=== PATIENT | female | born 1970 | race Caucasian/White ===

== ENCOUNTER 2017-06-06 23:00 | Inpatient (IN) | payer OTHER ==
[~2017-06-06] VITALS: Ht 165.1 cm; Wt 77.0 kg
[~2017-06-06 23:00] MED LIST: AMITRIPTYLINE H25 MG PO; CATAPRES0.1 MG PO; CEFDINIR300 MG PO; CLINDAMYCIN HC300 MG PO; Cleocin PO; ESCITALOPRAM OXA5 MG PO; FENOFIBRATE54 M1 PO; FLEXERIL 5 MG; FLEXERIL10 MG PO; HYDROCODON-ACE1 EAC7; IBUPROFEN800 MG PO; LEXAPRO10 MG PO; LIPITOR20 MG PO; LISINOPRIL10 MG PO; LORCET PLUS 7.1 EACH PO; MOBIC15 MG PO; NAPROXEN500 MG PO; NEURONTIN300 MG PO; NEURONTIN400 MG PO; Naprosyn PO; PRILOSEC20 MG PO; RANITIDINE HCL150 MG PO; RYBIX ODT50 MG PO; ULTRAM50 MG PO; ZESTRIL20 MG PO; ZOFRAN4 MG PO
[2017-06-06 23:49] LABS: HEMATOCRIT 34.3 % (36.0-46.0); MCH 31.4 PG (29.0-34.0); MCHC 32.4 G/DL (30.0-36.0); MCV 96.9 FL (83-99); MEAN PLAT.VOLUME 9.3 uM^3 (9.5-12.4); PLATELET COUNT 419 K/uL (156-360); RBC DIS.WIDTH-CV 12.5 % (11.8-14.6); RBC DIS.WIDTH-SD 44.9 % (39-53); RED BLOOD COUNT 3.54 M/uL (3.80-5.20); WHITE BLOOD COUNT 13.5 K/uL (4.1-10.2)
[2017-06-07] VITALS (8 sets, daily range): BP systolic 121–152; BP diastolic 62–87
[2017-06-07 00:02] LABS: CHLORIDE 107 mEq/L (99-109); POTASSIUM 3.8 mEq/L (3.7-5.4); SODIUM 141 mEq/L (136-147)
[2017-06-07 00:04] LABS: GLUCOSE 153 mg/dL (70-99)
[2017-06-07 00:05] LABS: ANION GAP 9 MEQ/L (2-14)
[2017-06-07 00:06] LABS: TOTAL BILIRUBIN 0.2 mg/dL (0.0-1.0)
[2017-06-07 00:07] LABS: ALKALINE PHOSPHATASE 87 IU/L (3-129)
[2017-06-07 00:08] LABS: GFR ESTIMATE (CALCULATED) 52 mL/min/
[2017-06-07 00:09] LABS: UREA NITROGEN (BUN) 20 mg/dL (9-23)
[2017-06-07 00:11] LABS: LIPASE 29 U/L (1.0-51.0)
[2017-06-07 00:19] LABS: TROP-I INTERPRETATION NEGATIVE; TROPONIN-I < 0.01 ng/mL (0.0-0.30)
[2017-06-07 00:56] LABS: ADD MIUA? YES; BILIRUBIN NEGATIVE; BLOOD NEGATIVE; COLOR AMBER ((YELLOW)); GLUCOSE (STRIP) 50; KETONES NEGATIVE; LEUKOCYTES NEGATIVE; NITRITE NEGATIVE; PROTEIN (STRIP) 100; SPECIFIC GRAVITY 1.018 (1.000-1.030)
[2017-06-07 01:30] LABS: EPITHELIAL CELLS 4+ /HPF; UCUL ADDED? YES
[2017-06-07 01:39] LABS: INTER. NORMALIZED RATIO 1.3; PROTHROMBIN TIME 14.5 SEC (10.2-12.9)
[2017-06-07 01:42] LABS: PTT 40.2 SEC (25-37)
[2017-06-08 03:42] VITALS: BP 132/71
[2017-06-08 07:25] VITALS: BP 134/80
[2017-06-08 15:56] VITALS: BP 151/76
[2017-06-08 21:17] VITALS: BP 141/78
[2017-06-09] VITALS (7 sets, daily range): BP systolic 132–166; BP diastolic 70–93
[2017-06-10 04:43] VITALS: BP 143/91
[2017-06-10 07:08] LABS: MCH 31.1 PG (29.0-34.0); MCHC 32.5 G/DL (30.0-36.0); MCV 95.8 FL (83-99); MEAN PLAT.VOLUME 9.8 uM^3 (9.5-12.4); PLATELET COUNT 371 K/uL (156-360); RBC DIS.WIDTH-CV 12.7 % (11.8-14.6); RBC DIS.WIDTH-SD 45.1 % (39-53); RED BLOOD COUNT 3.34 M/uL (3.80-5.20); WHITE BLOOD COUNT 10.6 K/uL (4.1-10.2)
[2017-06-10 07:20] VITALS: BP 168/95
[2017-06-10 07:35] LABS: ALKALINE PHOSPHATASE 81 IU/L (3-129); ANION GAP 10 MEQ/L (2-14); CHLORIDE 110 MEQ/L (99-109); GFR ESTIMATE (CALCULATED) > 59 mL/min/; GLUCOSE 112 mg/dL (70-99); POTASSIUM 3.8 MEQ/L (3.7-5.4); SAMPLE HEMOLYSIS CHECK 0; SAMPLE ICTERIC CHECK 0; SAMPLE LIPEMIA CHECK 0; SODIUM 142 MEQ/L (136-147); TOTAL BILIRUBIN 0.6 MG/DL (0.0-1.0); UREA NITROGEN (BUN) 13 mg/dL (9-23)
[2017-06-10 11:20] VITALS: BP 166/94
[2017-06-10 15:15] VITALS: BP 156/98
[2017-06-11 00:07] VITALS: BP 169/71
[2017-06-11 07:17] VITALS: BP 172/98
[2017-06-11] MEDS ORDERED: PROTONIX20 MG PO (10:51)
== END 2017-06-11 11:19 | disposition home or self-care (01) | DRG 328 ==
LOC: EME 23:00 → EDOF 06-07 01:14 → 2EAST 06-07 01:14 → ENRESERV 06-07 01:16 → 2EAST 06-07 03:02
PROVIDERS: Emergency Medicine; Physician Assistant Surgical
PROC: 0DQ90ZZ Repair Duodenum, Open Approach (ICD-10-PCS; principal; 2017-06-07)
DX: K26.1 Acute duodenal ulcer with perforation (principal); I10 Essential (primary) hypertension; K21.9 Gastro-esophageal reflux disease without esophagitis; G43.909 Migraine, unspecified, not intractable, without status migrainosus; F32.9 Major depressive disorder, single episode, unspecified; F41.9 Anxiety disorder, unspecified; F17.200 Nicotine dependence, unspecified, uncomplicated; Z90.710 Acquired absence of both cervix and uterus; Z85.41 Personal history of malignant neoplasm of cervix uteri
CPT/HCPCS: 71010; 74177; 80053; 81003; 83605; 83690; 84484; 85027; 85610; 85730; 86900; 86901; 87086; 93005; 94799; 99281; 99285; C9113; J0330; J0744; J1100; J1170; J1650; J2270; J2405; J2543; J2710; J3010; J3480; J7030; J7042